=== PATIENT | female | born 1970 | race Asian ===

== ENCOUNTER 2016-12-05 10:06 | Observation (INO) | payer OTHER ==
[~2016-12-05] VITALS: Ht 149.9 cm; Wt 61.0 kg
[2016-12-05] MEDS ORDERED: SODIUM CHLORIDE FLUSH 10ML SYR IVF ONE (10:30)
[2016-12-05] MEDS ORDERED: MORPHINE SULFATE 4 MG/ML, 1ML IVPush PRN (10:30)
[2016-12-05] MEDS ORDERED: ONDANSETRON 2MG/ML, 2ML IVPush ONE (10:30)
[2016-12-05] MEDS ORDERED: MORPHINE SULFATE 4 MG/ML, 1ML ONE (10:36)
[2016-12-05] MEDS ORDERED: ONDANSETRON 2MG/ML, 2ML ONE (10:36)
[2016-12-05 10:44] LABS: BLOOD UREA NITROGEN 20 mg/dL (7-18)
[2016-12-05] MEDS ORDERED: LINA1TAB5 PO (10:44)
[2016-12-05] MEDS ORDERED: TELM1TAB PO (10:44)
[2016-12-05 10:49] LABS: IS PT STATUS REG ER OR PRE ER? YES
[2016-12-05] MEDS ORDERED: NITROGLYCERIN 0.4 MG BOTTLE (25 TABS) SL PRN (12:00)
[2016-12-05] MEDS ORDERED: NITROGLYCERIN 0.4 MG/SPRAY SL PRN (12:00)
[2016-12-05] MEDS ORDERED: MAALOX/HYOSCYAMINE/LIDOCAINE 45 ML BOTTLE PO ONE (12:30)
[2016-12-05 14:00] VITALS: BP 100/68
[2016-12-05 16:39] LABS: IS PT STATUS REG ER OR PRE ER? NO
[2016-12-05 21:07] VITALS: BP 91/60
[2016-12-05] MEDS: SODIUM CHLORIDE FLUSH 10ML SYR IVF SCH (21:08)
[2016-12-06 00:05] LABS: IS PT STATUS REG ER OR PRE ER? NO
[2016-12-06 03:38] VITALS: BP 102/69
[2016-12-06] MEDS ORDERED: ASPIRIN 81 MG TABLET EC PO SCH (06:00)
[2016-12-06 06:22] LABS: BLOOD UREA NITROGEN 14 mg/dL (7-18)
[2016-12-06 08:08] VITALS: BP 116/78
[2016-12-06] MEDS ORDERED: REGADENOSON 0.4 MG/5 ML SYRINGE ONE (08:41)
[2016-12-06] MEDS: SODIUM CHLORIDE FLUSH 10ML SYR IVF SCH (08:51)
[2016-12-06] MEDS ORDERED: LOSARTAN 50MG TABLET PO SCH (09:00)
[2016-12-06] MEDS ORDERED: HYDROCHLOROTHIAZIDE 25 MG TABLET PO SCH (09:00)
[2016-12-06 12:26] VITALS: BP 125/79
[2016-12-06] MEDS ORDERED: OMEP-110 PO (14:35)
== END 2016-12-06 17:09 | disposition home or self-care (01) ==
LOC: ED 11:03 → EDIP 11:44 → INTOOBSV 11:44 → 5SO 12:38
PROVIDERS: ADMIT Hospitalist; ATTEND Hospitalist
DX: R07.89 Other chest pain (principal); I10 Essential (primary) hypertension; E11.9 Type 2 diabetes mellitus without complications
CPT/HCPCS: 36415; 71010; 78452; 80048; 80061; 82040; 83036; 83880; 84484; 85025; 93005; 93017; 96374; 96375; 99285; A9502; C9898; G0378; J2405; J2785

== ENCOUNTER 2019-02-10 08:57 | Emergency (ER) | payer OTHER ==
[~2019-02-10] VITALS: Ht 149.9 cm; Wt 60.0 kg
[~2019-02-10 08:57] MED LIST: LINA1TAB5 PO; OMEP-110 PO; TELM1TAB PO
--- NOTE | 2019-02-10 09:27 | NUR ---
PATIENT PLACED ON [employer] BY EMT IN ROOM 39.
[2019-02-10] MEDS ORDERED: ASPIRIN 81 MG TABLET CHEW ONE (09:37)
[2019-02-10 09:40] LABS: BASOPHILS # (AUTO) 0.05 x10^3/uL (0-0.1); BASOPHILS % (AUTO) 1 % (0-1); EOSINOPHILS # (AUTO) 0.19 x10^3/uL (0-0.4); EOSINOPHILS % (AUTO) 3 % (1-7); LYMPHOCYTES # (AUTO) 1.81 x10^3/uL (1-3.4); LYMPHOCYTES % (AUTO) 25 % (22-44); MD NO; MEAN CORPUSCULAR HGB CONC 31.9 g/dL (32.4-35.8); MEAN CORPUSCULAR VOLUME 81.6 fL (80-100); MEAN PLATELET VOLUME 6.9 fL (7.4-10.4); MONOCYTES # (AUTO) 0.39 x10^3/uL (0.2-0.8); MONOCYTES % (AUTO) 5 % (2-9); NEUTROPHILS # (AUTO) 4.94 x10^3/uL (1.8-6.8); NEUTROPHILS % (AUTO) 67 % (42-75); PLATELET COUNT 425 x10^3/uL (130-400); RED BLOOD COUNT 4.06 x10^6/uL (3.82-5.3); RED CELL DISTRIBUTION WIDTH 17.2 % (9.6-15.2)
--- NOTE | 2019-02-10 09:41 | NUR ---
PT XR AT THIS TIME MEDS GIVEN PER ORDERS
--- NOTE | 2019-02-10 09:52 | NUR ---
RETURNED FROM XR
[2019-02-10 09:53] LABS: ALANINE AMINOTRANSFERASE 27 U/L (12-78); ALBUMIN 3.7 g/dL (3.4-5.0); ANION GAP 8 mmol/L (5-15); CALCIUM 9.1 mg/dL (8.5-10.1); CHLORIDE 106 mmol/L (98-107); CREATININE 0.66 mg/dL (0.55-1.02)
--- NOTE | 2019-02-10 09:55 | NUR ---
[facility] PT REPORTS NO DISCOMFORT AT THIS TIME
[2019-02-10 09:57] LABS: ALKALINE PHOSPHATASE 57 U/L (45-117); BILIRUBIN,TOTAL 0.5 mg/dL (0.2-1.0); TOTAL PROTEIN 7.5 g/dL (6.4-8.2); TROPONIN I < 0.015 ng/mL (0.000-0.045)
[2019-02-10] MEDS ORDERED: ASPIRIN 81 MG TABLET CHEW PO ONE (10:00)
[2019-02-10 11:30] VITALS: BP 125/71
== END 2019-02-10 12:02 | disposition home or self-care (01) ==
LOC: ED 11:55
DX: R07.89 Other chest pain (principal); I10 Essential (primary) hypertension; E11.9 Type 2 diabetes mellitus without complications
CPT/HCPCS: 36415; 71046; 80053; 84484; 85025; 93005; 99284